=== PATIENT | male | born 1975 | race Two or more races ===

== ENCOUNTER 2020-01-17 03:01 | Inpatient (IN) | payer MEDICAID ==
[2020-01-17] VITALS (20 sets, daily range): BP systolic 93–132; BP diastolic 65–88
[~2020-01-17] VITALS: Ht 162.6 cm; Wt 45.4 kg
--- NOTE | 2020-01-17 03:09 | NUR ---
ED Nurse Note: pt BIBA from home c/o SOB x 2 hours. pt has a h/o DM, accucheck was 363. pt appears to be emaciated but in good hygiene, AO x 4. states he feels like he cannot breathe, O2 sat 99% on room air. pt denies any pain at this time. EMS report that pt self administered insulin at home RE EXAMINER. no other complaints at this time. skin is clean dry and intact. tachycardia and tachypnea noted upon exam
--- NOTE | 2020-01-17 03:12 | Emergency Room Report ---
History of Present Illness General Chief Complaint: Dyspnea/Respdistress Source: Patient, EMS Present Illness HPI This a 44-year-old male with a history of insulin-dependent diabetes. He presents with chief complaint of shortness of breath. Onset for last few hours. He is a he has been feeling weak and tired. Blood sugar was very high at home so he took insulin. Now sugar is in the 300s. Patient complaining of shortness of breath. Worse with exertion. Better with rest. No fever chills but no nausea vomiting or diarrhea. No cough or congestion. No fever. Similar symptoms 4 months ago when he was admitted to [facility]. Allergies: Coded Allergies: No Known Allergies (Unverified , 01/17/20) COVID-19 Screening Contact w/high risk pt: No Recent Travel to affected area: No Experienced COVID-19 symptoms?: No Patient History Past Medical History: see triage record, old chart reviewed, DM Past Surgical History: none Pertinent Family History: none Social History: Denies: smoking Immunizations: other Reviewed Nursing Documentation: PMH: Agreed; PSxH: Agreed Nursing Documentation-PMH Past Medical History: No History, Except For Hx Diabetes: Yes Review of Systems Eye: Denies: eye pain, blurred vision ENT: Denies: ear pain, nose congestion, throat swelling Respiratory: Reports: shortness of breath; Denies: cough Cardiovascular: Denies: chest pain, palpitations Gastrointestinal: Denies: abdominal pain, diarrhea, nausea, vomiting Musculoskeletal: Denies: back pain, joint pain Skin: Denies: rash Neurological: Denies: headache, numbness Endocrine: Denies: increased thirst, increased urine Hematologic/Lymphatic: Denies: easy bruising All Other Systems: negative except mentioned in HPI Physical Exam Vital Signs Date Time Temp Pulse Resp B/P (MAP) Pulse Ox O2 Delivery O2 Flow Rate FiO2 01/17/20 03:03 98.1 140 22 144/99 (114) 100 Room Air Vitals with tachycardia Sp02 EP Interpretation: reviewed, normal General Appearance: alert, moderate distress, cachetic Head: normocephalic, atraumatic Eyes: bilateral eye PERRL, bilateral eye EOMI ENT: hearing grossly normal, normal pharynx Neck: full range of motion, supple, no meningismus Respiratory: chest non-tender, lungs clear, normal breath sounds, other - Patient is tachypneic with [place] respiration Cardiovascular #1: regular rate, rhythm, no murmur, tachycardia Gastrointestinal: normal bowel sounds, non tender, no mass, no organomegaly, no bruit, non-distended Musculoskeletal: back normal, normal range of motion, gait/station normal Psychiatric: mood/affect normal Procedures Critical Care Time Critical Care Time Critical care is mandated in this patient who presented with DKA. Patient require my urgent intervention to attenuate the risks of metabolic collapse which may lead to cardiovascular collapse and . Critical care time is 75 minutes excluding any reportable procedure. Critical care time included evaluation, multiple reevaluation, looking at old charts, interpreting laboratory and diagnostic data, discussing case with patient and family and consultants, and charting. Medical Decision Making Diagnostic Impression: Primary Impression: DKA, type 1 Qualified Codes: E10.10 - Type 1 diabetes mellitus with ketoacidosis without coma Additional Impressions: Leukocytosis Qualified Codes: D72.829 - Elevated white blood cell count, unspecified Hypokalemia ER Course This patient presents with severe DKA. He is also hypokalemic. Potassium replaced first before insulin. Patient doing much better after IV fluid. Heart rate drops from 140s down to the 110s. He does have a leukocytosis but I suspect this is from a stress response. No evidence of any infection. Will admit to the ICU on insulin drip. I discussed the case with Dr. Hein for admission. EKG Diagnostic Results Rate: tachycardiac Rhythm: NSR ST Segments: no acute changes Rhythm Strip Diag. Results EP Interpretation: yes Rate: 110 Rhythm: NSR, no PVC's, no ectopy Chest X-Ray Diagnostic Results Chest X-Ray Diagnostic Results : Chest X-Ray Ordered: Yes # of Views/Limited/Complete: 1 View Indication: Shortness of Breath EP Interpretation: Yes Interpretation: no consolidation, no effusion, no pneumothorax, no acute cardiopulmonary disease Impression: No acute disease Electronically Signed by: Shorty García MD Last Vital Signs Date Time Temp Pulse Resp B/P (MAP) Pulse Ox O2 Delivery O2 Flow Rate FiO2 01/17/20 03:03 98.1 140 22 144/99 (114) 100 Room Air Status: improved Disposition: ADMITTED INPATIENT Condition: Critical Shorty García MD January 17, 2020 03:11
[2020-01-17 03:31] LABS: HEMATOCRIT 44.3 % (42.0-52.0); HEMOGLOBIN 15.9 G/DL (14.2-18.0); MEAN CORPUSCULAR VOLUME 93 FL (80-99); PLATELET COUNT 210 K/UL (150-450); RED BLOOD COUNT 4.78 M/UL (4.70-6.10); RED CELL DISTRIBUTION WIDTH 13.1 % (11.6-14.8)
[2020-01-17 03:34] LABS: WHITE BLOOD COUNT 26.9 K/UL (4.8-10.8)
[2020-01-17 03:41] LABS: APPEARANCE,URINE CLEAR; BILIRUBIN, URINE NEGATIVE (NEGATIVE); COLOR,URINE PALE YELLOW; GLUCOSE, URINE (UA) 4+ (NEGATIVE); KETONES,URINE 4+ (NEGATIVE); LEUKOCYTE ESTERASE ,URINE NEGATIVE (NEGATIVE); NITRITE,URINE NEGATIVE (NEGATIVE); PH,URINE 6 (4.5-8.0); PROTEIN,URINE 2+ (NEGATIVE); UROBILINOGEN,URINE NORMAL MG/DL (0.0-1.0)
[2020-01-17 03:51] LABS: ALANINE AMINOTRANSFERASE 23 U/L (12-78); ALBUMIN 3.3 G/DL (3.4-5.0); ALBUMIN/GLOBULIN RATIO 0.8 (1.0-2.7); ALKALINE PHOSPHATASE 208 U/L (46-116); ANION GAP 32 mmol/L (5-15); ASPARTATE AMINO TRANSFERASE 13 U/L (15-37); BILIRUBIN,TOTAL 0.7 MG/DL (0.2-1.0); BLOOD UREA NITROGEN 15 mg/dL (7-18); CALCIUM 8.7 MG/DL (8.5-10.1); CHLORIDE 104 MMOL/L (98-107); CREATININE 1.1 MG/DL (0.55-1.30); SODIUM 141 MMOL/L (136-145)
[2020-01-17 03:53] LABS: CARBON DIOXIDE 5 MMOL/L (21-32)
[2020-01-17] MEDS ORDERED: Insulin Reg 100 units Premix 100 ML IV STA (04:12)
--- NOTE | 2020-01-17 04:30 | NUR ---
ED Nurse Note: Informed to follow insulin drip protocol per ERMD. Not neccessary to give IVP insulin bolus per ERMD Raquel and will contine to follow protocol.
--- NOTE | 2020-01-17 04:30 | NUR ---
ED Nurse Note: Pt is laying in bed with safety measures in place. Accu check done and BS is 375. Insulin drip initiated at this time per protocol at 6 units/hr. Will continue to monitor.
[2020-01-17] MEDS: 1/2NS w/KCl 20mEq 1000ml 1,000 ML IV SCH ×2 (04:42→10:55)
--- NOTE | 2020-01-17 05:00 | NUR ---
ED Nurse Note: Pt is resting in bed. NAD. Pt given water and tolerated well, ok'd by ERMD. Pt is breathing at 15 respirations/min and oxygen saturation is 100%, but appears to still be using accessory muscles to breathe. See vitals as charted.
--- NOTE | 2020-01-17 05:30 | NUR ---
ED Nurse Note: Pt accu check shows blood sugar of 313. ERMD aware.
--- NOTE | 2020-01-17 05:45 | NUR ---
ED Nurse Note: Titrated insulin drip down to 5 unit/hr per ERMD verbal order at this time. Will continue to monitor pt.
--- NOTE | 2020-01-17 06:00 | NUR ---
ED Nurse Note: Pt states he does not consistently take home medications, no meds to be reported at this time. Pt also has swelling to the L side of his face that was there prior to arriving in the ED. Pt states swelling is from either a fall or infection, but is a poor historian.
--- NOTE | 2020-01-17 06:05 | NUR ---
ED Nurse Note: Report given to JENNIFER Guzman.
--- NOTE | 2020-01-17 06:15 | NUR ---
ED Nurse Note: MRSA, CRE/VRE swabs collected and sent to lab.
--- NOTE | 2020-01-17 06:25 | NUR ---
TRANSFER TO FLOOR: Patient transferred to ICU unit as ordered by KEISHA at this time. Pt is aaox4, speaking in full sentences and no acute distress noted. Pt IVs are patent and intact with medications infusing as ordered. Endorsed most recent blood sugar of 276 taken prior to transfer to receiving RN. Pt remains on insulin drip at 5 units/hr, ERMD aware. Pt taken to the unit via gurney, connected to the threat monitoring analyst by maria elena and RN. Pt appears more calm and breathing is normal at this time. Pt belongings sent with pt to floor.
--- NOTE | 2020-01-17 06:25 | NUR ---
ED Nurse Note: Pt vital signs are stable for transfer to unit.
[2020-01-17] MEDS ORDERED: Acetaminophen 500mg (ES) tab ORAL PRN (07:30)
[2020-01-17] MEDS ORDERED: Insulin Rate Change 1 Each MISC PRN (07:30)
[2020-01-17] MEDS ORDERED: Insulin Human Regular 100units/ml 3ml IV PRN (07:30)
[2020-01-17] MEDS ORDERED: NS w/KCl 20mEq 1000ml 1,000 ML IV SCH (08:00)
[2020-01-17] MEDS: Insulin Reg 100 units Premix 100 ML IVPB SCH ×9 (08:50→19:48)
[2020-01-17] MEDS: Insulin Human Regular 100units/ml 3ml IV PRN ×7 (08:51→21:06)
[2020-01-17 10:11] LABS: ANION GAP 24 mmol/L (5-15); BLOOD UREA NITROGEN 12 mg/dL (7-18); CALCIUM 8.8 MG/DL (8.5-10.1); CHLORIDE 109 MMOL/L (98-107); CREATININE 0.8 MG/DL (0.55-1.30); SODIUM 141 MMOL/L (136-145)
[2020-01-17 10:20] LABS: CARBON DIOXIDE 8 MMOL/L (21-32)
--- NOTE | 2020-01-17 12:02 | Diagnostic Imaging Report ---
Indication: Shortness of breath Technique: One view of the chest Comparison: none Findings: Lungs and pleural spaces are clear. Heart size is normal. Impression: No acute process
[2020-01-17 13:17] LABS: ALANINE AMINOTRANSFERASE 22 U/L (12-78); ALBUMIN 2.7 G/DL (3.4-5.0); ALBUMIN/GLOBULIN RATIO 0.7 (1.0-2.7); ALKALINE PHOSPHATASE 142 U/L (46-116); ANION GAP 16 mmol/L (5-15); ASPARTATE AMINO TRANSFERASE 11 U/L (15-37); BILIRUBIN,TOTAL 0.5 MG/DL (0.2-1.0); BLOOD UREA NITROGEN 11 mg/dL (7-18); CALCIUM 8.1 MG/DL (8.5-10.1); CARBON DIOXIDE 14 MMOL/L (21-32); CHLORIDE 109 MMOL/L (98-107); CREATININE 0.7 MG/DL (0.55-1.30); PHOSPHORUS 1.4 MG/DL (2.5-4.9); POTASSIUM 2.3 MMOL/L (3.5-5.1); SODIUM 139 MMOL/L (136-145)
--- NOTE | 2020-01-17 13:23 | NUR ---
READING RECOVERY TEACHER NOTE PT has admitted to ICU on 01/17/2020. Pt presents as A&O4x. Pt resides w/ his family at [address], [place] [address]. Pt is single, never , unemployed and has no children. Pt denies tobacco/substance abuse. RUDS all negative. Pt also denies hx of mental illness. Pt reports he is independent w/ ADLs and ambulatory w/o DMEs. Pt reports he does not have PCP. GLORIA provided the community resource packet including the list of [facility] care centers. Emergency contact provided: Natali (mother) [phone] Addendum: 01/17/20 at 1421 by NOEL CASTRO SW received a home safety evaluation consult for assist obtaining insulin. GLORIA spoke w/ Ade from Admitting that pt will be assisted for signing up restricted [facility]. GLORIA provided the list of [facility] w/ pharmacy services. Pt verbalized understanding. Pt has a and two children living in [place]. Currently living w/ his mother. Addendum: 01/18/20 at 1647 by NOEL CASTRO GLORIA also provided additional information on insulin discount program: https://www.[employer]/ and https://www.[employer]/sign-up/swtghjox-xkbjwsj-mvql GLORIA encouraged pt to sign up for the programs. Per Ade, pt has restricted [employer]. SW does not have any knowledge in types of insulin that he will be prescribed. Thus, GLORIA is unable to determine whether restricted [employer] or discount programs will cover such product. GLORIA encouraged pt to contact them directly.
[2020-01-17 13:26] LABS: HEMATOCRIT 36.4 % (42.0-52.0); HEMOGLOBIN 13.6 G/DL (14.2-18.0); MEAN CORPUSCULAR VOLUME 90 FL (80-99); PLATELET COUNT 158 K/UL (150-450); RED BLOOD COUNT 4.06 M/UL (4.70-6.10); RED CELL DISTRIBUTION WIDTH 12.9 % (11.6-14.8); WHITE BLOOD COUNT 13.7 K/UL (4.8-10.8)
[2020-01-17] MEDS ORDERED: Levemir Flexpen SUBQ SCH (14:00)
--- NOTE | 2020-01-17 15:09 | NUR ---
CASE MANAGEMENT: REVIEW 01/17/2020 44 YO M SUSAN FROM HOME CC: SOB PMHx: DM SI:DKA T 98.1 HR 140 RR 22 B/P 144/99 SATS 100% ON RA LABS: WBC 26.9 K 3 CO2 5 GLU 445 MG 2.5 AST 13 ALP 208 UTOX (+POSITIVE-SMALL) ABGs PH 7.338 PCO2 23.7 PO2 100.8 HCO3 12.4 BE -11.5 IS:NS BOLUS X2 KCL IV X1 1/2NS W/ KCL IV X1 REGULAR INSULIN DRIP CXR Impression: No acute process PATIENT ADMITTED TO ICU 01/17/2020 @ 0426 DCP: TBD
[2020-01-17] MEDS: Potassium Phosphate 20 MEQ in 1/2 NS 1000ml 1,000 ML IV SCH ×3 (16:46→23:30)
[2020-01-17] MEDS ORDERED: NovoLOG Insulin Flexpen SUBQ SCH (18:00)
--- NOTE | 2020-01-17 19:34 | NUR ---
NURSE NOTES: Received patient from JENNIFER Marr. Will continue plan of care.
--- NOTE | 2020-01-17 20:00 | NUR ---
NURSE NOTES: Patient is awake, alert and oriented x3, Ugandan speaking and understands a bit of Congolese. Accucheck hourly. Insulin drip running per protocol via left forearm 20g IV, right forearm running kphos 20meq in 1/2 NS @150ml/hr. All needs are met at this time, will continue to monitor.
--- NOTE | 2020-01-17 22:00 | NUR ---
NURSE NOTES: Accucheck resulted in 160, titrated insulin drip to 2.5units. BP: 106/65, HR:92, O2 saturation:100% on room air. No signs of pain or distress. Bed low locked and alarm is on. Will continue to monitor.
[2020-01-17] MEDS: Levemir Flexpen SUBQ SCH (22:11)
[2020-01-17] MEDS ORDERED: Zolpidem 5mg tab ORAL PRN (22:30)
--- NOTE | 2020-01-17 23:30 | History and Physical Report ---
DATE OF ADMISSION: 01/17/2020 REASON FOR ADMISSION: Acidosis. HISTORY OF PRESENT ILLNESS: This is a 44-year-old male has a known history of insulin-dependent diabetes mellitus. He was hospitalized at [facility] in the last couple of months with DKA. He went home on insulin and ran out about a month ago. The patient has been increasingly weak and short of breath for the past few days and came to the emergency room where he was noted to have severe acidosis with arterial blood gas revealing a pH of 6.9. He was ketone positive with a blood glucose over 300 and admitted to the intensive care unit. PAST MEDICAL HISTORY: As above. ALLERGIES: None known. MEDICATIONS: Prior to admission, long-acting insulin 14 units a day, short-acting insulin 4 units before meals. FAMILY HISTORY: Notable for diabetes. SOCIAL HISTORY: Negative for smoking, alcohol, or substance abuse. REVIEW OF SYSTEMS: Otherwise unremarkable. PHYSICAL EXAMINATION: GENERAL: Thin, frail but alert. VITAL SIGNS: Blood pressure 140/99, pulse 140, respiratory rate 22, afebrile, room air oxygen saturation 100%. HEENT: Conjunctivae pink. Oropharynx clear. NECK: Supple. LUNGS: Clear. CARDIAC: Regular. Normal S1, S2. No murmur. ABDOMEN: Soft. EXTREMITIES: No edema. NEUROLOGIC: No focality. LABORATORY AND DIAGNOSTIC DATA: EKG with sinus tachycardia and nonspecific ST changes. Chest x-ray, no acute process. [place] [address], hemoglobin 15. Sodium 141, potassium 3, bicarb 5, chloride 104, BUN 15, creatinine 1.1, glucose 445. Troponin negative. Urinalysis with no active sediment. IMPRESSION: 1. Diabetic ketoacidosis. 2. Noncompliance with insulin regimen. 3. Hypovolemia. 4. Dehydration. 5. Hypokalemia. 6. Leukocytosis with no obvious source of infection. PLAN: 1. ICU care monitoring. 2. Insulin drip. 3. Hydration. 4. Potassium replacement. 5. Check phosphorus and replace accordingly. 6. DVT prophylaxis. 7. web services professional assistance for discharge planning and ability to obtain medications. 8. Adjust IV fluids based on clinical parameters. Jackson Hein M.D. DR: Kennedi JOB#: [id number] CC:
[2020-01-18] VITALS (25 sets, daily range): BP systolic 83–106; BP diastolic 57–81
--- NOTE | 2020-01-18 | NUR ---
NURSE NOTES: Patient is comfortable. Vital signs stable. BS:150, continues insulin drip @ 2units/hr.
[2020-01-18] MEDS ORDERED: Insulin Reg 100 units Premix 100 ML IVPB SCH (01:45)
--- NOTE | 2020-01-18 02:00 | NUR ---
NURSE NOTES: BS: 69 @ 0100; 1/2 cup OJ given. Rechecked @ 0130 BS:148. Moved from Algorithm 2 to Algorithm 1, input new orders and obtained new label from [facility]. BS:140 @ 0200, restarted insulin drip w/ Algorithm 1: drip rate of 1unit/hr. All interventions per protocol. Will keep monitoring.
[2020-01-18] MEDS: Insulin Reg 100 units Premix 100 ML IVPB SCH ×3 (02:15→11:00)
--- NOTE | 2020-01-18 04:00 | NUR ---
NURSE NOTES: BS: 99 at target range. Insulin drip rate decreased to 0.2units/hr.
[2020-01-18 05:36] LABS: BASOPHILS % (AUTO) 0.6 % (0.0-2.0); EOSINOPHILS % (AUTO) 0.4 % (0.0-3.0); HEMATOCRIT 30.3 % (42.0-52.0); HEMOGLOBIN 11.8 G/DL (14.2-18.0); LYMPHOCYTES % (AUTO) 10.9 % (20.0-45.0); MEAN CORPUSCULAR VOLUME 89 FL (80-99); MONOCYTES % (AUTO) 7.5 % (1.0-10.0); NEUTROPHILS % (AUTO) 80.6 % (45.0-75.0); PLATELET COUNT 107 K/UL (150-450); RED BLOOD COUNT 3.43 M/UL (4.70-6.10); RED CELL DISTRIBUTION WIDTH 12.3 % (11.6-14.8); WHITE BLOOD COUNT 9.3 K/UL (4.8-10.8)
[2020-01-18 06:28] LABS: ALANINE AMINOTRANSFERASE 18 U/L (12-78); ALBUMIN 2.3 G/DL (3.4-5.0); ALBUMIN/GLOBULIN RATIO 0.7 (1.0-2.7); ALKALINE PHOSPHATASE 123 U/L (46-116); ANION GAP 12 mmol/L (5-15); ASPARTATE AMINO TRANSFERASE 22 U/L (15-37); BILIRUBIN,TOTAL 0.5 MG/DL (0.2-1.0); BLOOD UREA NITROGEN 7 mg/dL (7-18); CALCIUM 8.2 MG/DL (8.5-10.1); CARBON DIOXIDE 19 MMOL/L (21-32); CHLORIDE 109 MMOL/L (98-107); CREATININE 0.3 MG/DL (0.55-1.30); SODIUM 140 MMOL/L (136-145)
[2020-01-18 06:31] LABS: POTASSIUM 2.5 MMOL/L (3.5-5.1)
--- NOTE | 2020-01-18 07:21 | NUR ---
HAND-OFF: Report given to JENNIFER Marr.
--- NOTE | 2020-01-18 07:50 | NUR ---
NURSE NOTES: received report. pt in bed. a febrile. vss.insulin off. pt bg 70. d5ns running 125ml/hr. abdomen soft, flat. hypoactive bowel sounds. no bm at this time. urinal at bedside. continent. lt and rt fa 20g. skin intact. bed alarm on. will continue to monitor pt.
[2020-01-18 09:22] LABS: BASOPHILS % (AUTO) 0.5 % (0.0-2.0); EOSINOPHILS % (AUTO) 0.3 % (0.0-3.0); HEMATOCRIT 33.7 % (42.0-52.0); HEMOGLOBIN 12.8 G/DL (14.2-18.0); LYMPHOCYTES % (AUTO) 12.6 % (20.0-45.0); MEAN CORPUSCULAR VOLUME 88 FL (80-99); MONOCYTES % (AUTO) 7.5 % (1.0-10.0); NEUTROPHILS % (AUTO) 79.1 % (45.0-75.0); PLATELET COUNT 114 K/UL (150-450); RED BLOOD COUNT 3.81 M/UL (4.70-6.10); RED CELL DISTRIBUTION WIDTH 12.5 % (11.6-14.8)
--- NOTE | 2020-01-18 09:25 | NUR ---
CASE MANAGEMENT: REVIEW 01/18/2020 SI:DKA T 99.1 HR 82 RR 12 B/P 101/74 SATS 100% ON RA LABS: K 2.5 CL 109 CO2 19 CR 0.3 CA 8.2 PHOS 2.3 ALP 123 IS:KCL IV @ 125 ML/HR LEVEMIR SUBQ QHS INSULIN HUMAN IV PER PARAMETERS ICU DCP: TBD
[2020-01-18 10:03] LABS: ALANINE AMINOTRANSFERASE 20 U/L (12-78); ALBUMIN 2.4 G/DL (3.4-5.0); ALBUMIN/GLOBULIN RATIO 0.7 (1.0-2.7); ALKALINE PHOSPHATASE 119 U/L (46-116); ANION GAP 9 mmol/L (5-15); ASPARTATE AMINO TRANSFERASE 22 U/L (15-37); BILIRUBIN,TOTAL 0.6 MG/DL (0.2-1.0); BLOOD UREA NITROGEN 7 mg/dL (7-18); CALCIUM 8.3 MG/DL (8.5-10.1); CARBON DIOXIDE 22 MMOL/L (21-32); CHLORIDE 107 MMOL/L (98-107); CREATININE 0.3 MG/DL (0.55-1.30); SODIUM 138 MMOL/L (136-145)
[2020-01-18 10:21] LABS: POTASSIUM 2.4 MMOL/L (3.5-5.1)
--- NOTE | 2020-01-18 10:29 | NUR ---
NURSE NOTES: called MD Mcarthur regarding k 2.4, pt received 60k-dur, now on insulin drip at 1.5unis/kg/hr. spoke with Cecilia from call center. awaiting call back
[2020-01-18] MEDS: D5NS IV SCH ×4 (10:54→15:08)
[2020-01-18] MEDS: KCL IV SCH ×4 (10:54→15:08)
[2020-01-18] MEDS: Insulin Human Regular 100units/ml 3ml IV PRN (11:01)
[2020-01-18] MEDS ORDERED: Insulin Reg 100 units Premix 100 ML IV SCH (12:45)
--- NOTE | 2020-01-18 13:00 | NUR ---
NURSE NOTES: insulin drip off. pt eating 100% meals, drinking 500ml h20. no c/o pain. a febrile. will continue to
--- NOTE | 2020-01-18 13:16 | NUR ---
DISCHARGE PLANNING: NOTE ORDER RECEIVED >> PT NEEDS ASST IN OBTAINING INSULIN PT IS MEDICAL PRESUMPTIVE. [facility] HAS BEEN APPLIED FOR BY [employer] SSW TO PROVIDE PT WITH RESOURCES TO [facility] WHERE PT CAN OBTAIN DISCOUNTED MEDICATIONS THROUGH A PROGRAM (SEE SSW NOTE) ONCE PT IS READY FOR DC RX TO BE WRITTEN, RX TO BE FILLED BY NURSING AND PROVIDED TO PATIENT ALONG WITH TEACHING AND EDUCATION
--- NOTE | 2020-01-18 16:30 | NUR ---
NURSE NOTES: bg 293, 6 units subcut.
[2020-01-18] MEDS ORDERED: NovoLOG Insulin Flexpen SUBQ SCH (16:50)
[2020-01-18] MEDS: NovoLOG Insulin Flexpen SUBQ SCH ×2 (18:16→20:38)
[2020-01-18] MEDS: POTASSIUM PHOSPHATE IV SCH (18:17)
[2020-01-18] MEDS: SODIUM CHLORIDE IV SCH (18:17)
--- NOTE | 2020-01-18 19:50 | NUR ---
NURSE NOTES: LE: PATIENT ALERT ORIENTED, DENIED PAIN OR SOB, RESPIRATION REGULAR, O2 SATURATION OVER 98% NOTED, HR 80'S/MIN SR, ABDOMEN SOFT, PPL TO BOTH FA, INTACT AND PATENT, ONGOING K PHOS 20MEQ AT 100ML/HR VIA LEFT SIDE PPL, MADE LOWER BED POSITION, ON BED ALARM AND LOCKED, CALL LIGHT WITHIN REACH, WILL CONTINUE TO MONITOR.
--- NOTE | 2020-01-18 20:21 | NUR ---
HAND-OFF: Report given to thom royal
[2020-01-18] MEDS: Levemir Flexpen SUBQ SCH (20:39)
--- NOTE | 2020-01-18 21:50 | NUR ---
NURSE NOTES: le; NO PAIN OR SOB NOTED, WILL CONTINUE TO MONITOR.
[2020-01-19] VITALS (12 sets, daily range): BP systolic 78–114; BP diastolic 48–78
--- NOTE | 2020-01-19 00:15 | Progress Note ---
DATE: 01/18/2020 CARDIOLOGY PROGRESS NOTE SUBJECTIVE: Patient's condition has improved. Glucose parameters are stabilizing. He is no longer acidotic or ketotic. PHYSICAL EXAMINATION: Vitals are stable. Exam is unchanged. Patient is being taken off insulin drip and transitioned to long-acting insulin plus sliding scale coverage. LABORATORY DATA: Notable for potassium of 2.4. Phosphorus is 2.3. His magnesium was 2.0 yesterday. IMPRESSION: 1. DKA. 2. Hypokalemia. 3. Hypophosphatemia. 4. Noncompliance. PLAN: 1. Transition from insulin drip to long-acting insulin and sliding scale coverage. 2. Replace phosphorus and potassium. 3. Recheck magnesium levels. 4. Discharge planning. Jackson Hein M.D. DR: PAULIE JOB#: [id number] CC:
--- NOTE | 2020-01-19 00:30 | NUR ---
NURSE NOTES: NO DISTRESS NOTED AT THIS TIME.
--- NOTE | 2020-01-19 02:12 | NUR ---
NURSE NOTES: PATIENT ASLEEP STATUS, NO ACUTE DISTRESS NOTED, WILL CONTINUE PLAN OF CARE.
--- NOTE | 2020-01-19 04:10 | NUR ---
NURSE NOTES: NO PAIN OR DISTRESS NOTED AT THIS TIME.
[2020-01-19 04:40] LABS: HEMATOCRIT 30.4 % (42.0-52.0); HEMOGLOBIN 11.5 G/DL (14.2-18.0); MEAN CORPUSCULAR VOLUME 88 FL (80-99); PLATELET COUNT 95 K/UL (150-450); RED BLOOD COUNT 3.45 M/UL (4.70-6.10); RED CELL DISTRIBUTION WIDTH 12.2 % (11.6-14.8); WHITE BLOOD COUNT 6.6 K/UL (4.8-10.8)
[2020-01-19] MEDS: POTASSIUM PHOSPHATE IV SCH ×3 (04:42→17:30)
[2020-01-19] MEDS: SODIUM CHLORIDE IV SCH ×3 (04:42→17:30)
[2020-01-19 05:17] LABS: ALANINE AMINOTRANSFERASE 22 U/L (12-78); ALBUMIN 2.2 G/DL (3.4-5.0); ALBUMIN/GLOBULIN RATIO 0.8 (1.0-2.7); ALKALINE PHOSPHATASE 130 U/L (46-116); ANION GAP 8 mmol/L (5-15); ASPARTATE AMINO TRANSFERASE 33 U/L (15-37); BILIRUBIN,TOTAL 0.5 MG/DL (0.2-1.0); BLOOD UREA NITROGEN 8 mg/dL (7-18); CALCIUM 7.9 MG/DL (8.5-10.1); CARBON DIOXIDE 27 MMOL/L (21-32); CHLORIDE 104 MMOL/L (98-107); CREATININE 0.4 MG/DL (0.55-1.30); PHOSPHORUS 3.4 MG/DL (2.5-4.9); SODIUM 139 MMOL/L (136-145)
[2020-01-19 05:19] LABS: POTASSIUM 2.7 MMOL/L (3.5-5.1)
--- NOTE | 2020-01-19 05:30 | NUR ---
NURSE NOTES: MORNING CARE WAS DONE.
[2020-01-19] MEDS: NovoLOG Insulin Flexpen SUBQ SCH ×4 (06:30→20:48)
--- NOTE | 2020-01-19 07:00 | NUR ---
TRANSFER TO FLOOR: Patient transferred to SDU room 235-2 via hoswpital bed. Report given to JENNIFER HERNANDEZ. Belongings and medications given to [id number] nurse. Family and or S/O informed of transfer.
--- NOTE | 2020-01-19 07:00 | NUR ---
NURSE NOTES: Received report from Harinder RODRIGUEZ.
[2020-01-19] MEDS ORDERED: Acetaminophen 500mg (ES) tab ORAL PRN (07:30)
--- NOTE | 2020-01-19 08:50 | NUR ---
NURSE NOTES: Pt. in bed, a/o x 4. No sign of distress. On R.A. Denies pain at present. IV at right and left FA #20g. in placed running K phos. with 20kcl. at 100cc/hr. Bed in low position, locked. Call light within reach. Will cont. to monitor.
[2020-01-19] MEDS ORDERED: Pantoprazole Inj IVP SCH (09:00)
--- NOTE | 2020-01-19 11:27 | NUR ---
NURSE NOTES: Patient transferred from [facility], and received report from Arlene/RN, Patient is awake and alert, on room air no sign of distress/SOB noted. Able to make needs known, Denies pain at this time. Belonging check done with transferring nurse, Skin intact. IV on right and left AC, patent. Bed in low position and locked, Call light within reach. Will continue plan of care.
--- NOTE | 2020-01-19 19:34 | NUR ---
HAND-OFF: Report given to Rina/RN. Patient is in stable condition. Endorsed plan of care.
--- NOTE | 2020-01-19 20:12 | NUR ---
NURSE NOTES: Received patient report from JENNIFER Rogers. Patient shows no signs of distress or pain at the time. Patient is AO x 4. Shows no signs of respiratory distress on room air. IV patent and flushed. There are no signs of erythema, infiltration, or bleeding at the time. Bed in the lowest position, chin light within reach, and side rails up x 3. Will continue plan of care.
[2020-01-19] MEDS: Heparin 5000 units/ml inj SUBQ SCH (20:48)
[2020-01-19] MEDS ORDERED: Levemir Flexpen SUBQ SCH ×2 (21:00)
[2020-01-19] MEDS ORDERED: Heparin 5000 units/ml inj SUBQ SCH ×2 (21:00)
[2020-01-20] VITALS: BP 120/86
--- NOTE | 2020-01-20 01:44 | Progress Note ---
DATE: 01/19/2020 INTERNAL MEDICINE PROGRESS NOTE SUBJECTIVE: The patient without complaints. He is now acetone negative. Glucose parameters slightly elevated. Labs reviewed notable for potassium 2.7. Magnesium 2.1. Phosphorus is 3.4. OBJECTIVE: Exam without change. IMPRESSION: 1. DKA, recovering. 2. Hypokalemia, persisting. 3. Hypophosphatemia, corrected. 4. Severe protein-calorie malnutrition. 5. History of insulin noncompliance in the setting of insulin-requiring diabetes mellitus. PLAN: 1. Advance long-acting insulin. 2. Continue hydration and potassium replacement. 3. Diabetes education. Jackson Hein M.D. DR: ALICIA JOB#: [id number] CC:
[2020-01-20] MEDS: POTASSIUM PHOSPHATE IV SCH ×3 (03:43→22:33)
[2020-01-20] MEDS: SODIUM CHLORIDE IV SCH ×3 (03:43→22:33)
[2020-01-20 04:00] VITALS: BP 116/81
[2020-01-20 04:45] LABS: ANION GAP 3 mmol/L (5-15); BLOOD UREA NITROGEN 10 mg/dL (7-18); CALCIUM 8.3 MG/DL (8.5-10.1); CARBON DIOXIDE 29 MMOL/L (21-32); CHLORIDE 104 MMOL/L (98-107); CREATININE 0.3 MG/DL (0.55-1.30); PHOSPHORUS 4.8 MG/DL (2.5-4.9); POTASSIUM 3.7 MMOL/L (3.5-5.1); SODIUM 136 MMOL/L (136-145)
[2020-01-20] MEDS: NovoLOG Insulin Flexpen SUBQ SCH ×4 (06:30→20:51)
--- NOTE | 2020-01-20 07:22 | NUR ---
NURSE NOTES: Received report from Rina/RN, patient is awake and alert, sitting on bed, eating breakfast, On room air, no acute distress/SOB noted. Able to make needs known, denies pain at this time, IV on Right and Left FA, patent, no bleeding or infiltration noted. Bed in lowest position and locked, Call light within reach, Encouraged to use call light when needed. Will continue plan of care.
--- NOTE | 2020-01-20 07:45 | NUR ---
HAND-OFF: Report given to JENNIFER Rogers. Patient shows no signs of distress or pain at the time. Endorsed plan of care
[2020-01-20 08:00] VITALS: BP 96/73
[2020-01-20] MEDS: Heparin 5000 units/ml inj SUBQ SCH ×2 (08:25→20:50)
[2020-01-20 12:00] VITALS: BP 107/74
--- NOTE | 2020-01-20 12:21 | NUR ---
RD ASSESSMENT & RECOMMENDATIONS SEE CARE ACTIVITY FOR COMPLETE ASSESSMENT DAILY ESTIMATED NEEDS: Needs based on DM 53.6kg 27-32 kcals/kg 9183-5108 total kcals 1-1.5 g protein/kg 54-80 g total protein 25-30 mL/kg 4497-2678 total fluid mLs NUTRITION DIAGNOSIS: Altered nutrition related lab values r/t DKA as evidenced by A1C 11.6, Uglu 4+ on adm, acetone +. CURRENT DIET: CCHO MED PO DIET RECOMMENDATIONS: CCHO LOW (3 carbs per meal) + 2X PRO PORTIONS + 1carb snack in b/w meals ADDITIONAL RECOMMENDATIONS: 1) Obtain a daily standing weight 2) Add B-complex daily 3) Encourage snacks in b/w meals to prevent hypoglycemia
[2020-01-20] MEDS: Levemir Flexpen SUBQ SCH (14:49)
[2020-01-20 16:00] VITALS: BP 131/70
--- NOTE | 2020-01-20 19:20 | NUR ---
HAND-OFF: Report given to Kirsten/JENNIFER. Patient is in stable condition. Endorsed plan of care.
--- NOTE | 2020-01-20 19:30 | NUR ---
NURSE NOTES: Received report from JENNIFER Rogers. Patient is awake, lying in semi keith's; resting comfortably. A/Ox4, Denies pain at this time. No signs of acute distress noted. Checked IV site and flushed with ongoing IV fluid as prescribed. No erythema, bleeding or infiltration noted. Bed at lowest position, brakes on, siderails x3. Call light within reach. Will continue to monitor.
[2020-01-20 20:00] VITALS: BP 122/75
[2020-01-20] MEDS ORDERED: Levemir Flexpen SUBQ SCH (21:00)
--- NOTE | 2020-01-20 23:00 | Progress Note ---
DATE: 01/20/2020 SUBJECTIVE: Glucose levels remained elevated during the day. The patient has no new complaints. no cough, SOB, or CP. OBJECTIVE: His COVID19 swab is positive. VITAL SIGNS: Stable. No fevers LABORATORY DATA: Labs are reviewed. Potassium has been corrected. PLAN: We will adjust insulin doing to Levemir twice a day and continue sliding scale coverage before meals and anticipate discharge in the next 24 hours. The patient will need outpatient followup to optimize his diabetic therapy long-term. He does not require any therapy for COVI19 at present. He is now in isolation. Jackson Hein M.D. DR: Anna JOB#: [id number] CC: JEFFREY
[2020-01-21] VITALS: BP 118/80
--- NOTE | 2020-01-21 01:59 | NUR ---
NURSE NOTES: Resting throughout the night. No significant change of condition noted. Will continue to monitor.
[2020-01-21 04:00] VITALS: BP 105/89
[2020-01-21] MEDS: NovoLOG Insulin Flexpen SUBQ SCH ×2 (06:30→11:20)
--- NOTE | 2020-01-21 07:30 | NUR ---
HAND-OFF: Report given to JENNIFER Greenberg. Plan of care endorsed.
[2020-01-21 08:00] VITALS: BP 103/66
[2020-01-21] MEDS: Heparin 5000 units/ml inj SUBQ SCH (08:05)
[2020-01-21] MEDS: Levemir Flexpen SUBQ SCH (08:37)
[2020-01-21] MEDS: POTASSIUM PHOSPHATE IV SCH (09:30)
[2020-01-21] MEDS: SODIUM CHLORIDE IV SCH (09:30)
--- NOTE | 2020-01-21 11:53 | NUR ---
NURSE NOTES: pt transferred to 4e in stable condition w all belongings.
[2020-01-21 12:00] VITALS: BP 104/73
[2020-01-21] MEDS ORDERED: SODIUM CHLORIDE IV SCH ×2 (12:00→19:00)
[2020-01-21] MEDS ORDERED: POTASSIUM PHOSPHATE IV SCH ×2 (12:00→19:00)
--- NOTE | 2020-01-21 12:07 | NUR ---
NURSE NOTES: Patient transferred from [address] [place] [address], report received from JENNIFER Greenberg. Patient is AxOx4, not in distress, tolerating room air. PIV on right forearm and left wrist intact, right forearm infusing IVF as ordered. Patient is continent to bowel and bladder functions. Vitals stable prior to transport. Skin is intact. Oriented to room, bed low and locked, siderails up x2, isolation precautions maintained, alarms on zone 1. Will continue to monitor and implement plan of care.
[2020-01-21] MEDS ORDERED: Acetaminophen 500mg (ES) tab ORAL PRN (12:09)
[2020-01-21 13:08] LABS: ANION GAP 8 mmol/L (5-15); BLOOD UREA NITROGEN 8 mg/dL (7-18); CALCIUM 7.9 MG/DL (8.5-10.1); CARBON DIOXIDE 28 MMOL/L (21-32); CHLORIDE 101 MMOL/L (98-107); CREATININE 0.5 MG/DL (0.55-1.30); POTASSIUM 3.6 MMOL/L (3.5-5.1); SODIUM 137 MMOL/L (136-145)
[2020-01-21 13:13] LABS: ALANINE AMINOTRANSFERASE 20 U/L (12-78); ALBUMIN 2.2 G/DL (3.4-5.0); ALBUMIN/GLOBULIN RATIO 0.6 (1.0-2.7); ALKALINE PHOSPHATASE 129 U/L (46-116); ASPARTATE AMINO TRANSFERASE 26 U/L (15-37); BILIRUBIN,TOTAL 0.3 MG/DL (0.2-1.0); PHOSPHORUS 5.1 MG/DL (2.5-4.9)
--- NOTE | 2020-01-21 15:02 | NUR ---
CASE MANAGEMENT:REVIEW 01/21/20 SI: RECOVERING DKA HYPOKALEMIA. SEVERE MALNUTRITION 97.3 74 20 104/73 100% ON RA GLUCOSE+197 PHOS+5.1 IS: LEVEMIR SQ QD HEPARIN SQ Q12 LEVEMIR SQ QHS INSULIN AC+HS IVF+K-PHOS @ 100/HR : TELEMETRY STATUS DCP: FROM HOME PLAN: DOWNGRADE TO MED/SURG
--- NOTE | 2020-01-21 15:06 | NUR ---
DISCHARGE PLANNING ADMITTING IS STILL LOOKING INTO PATIENT'S INSURANCE PATIENT WILL NEED PRESCRIPTIONS UPON DISCHARGE AND CAN F/U AT THE [facility]
[2020-01-21 16:00] VITALS: BP 119/67
[2020-01-21] MEDS ORDERED: NovoLOG Insulin Flexpen SUBQ SCH (16:30)
[2020-01-21] MEDS ORDERED: LEVEMIR FL100 UNIT/1 SUBQ ×2 (17:53)
[2020-01-21] MEDS ORDERED: NOVOLOG100 UNITS1 SUBQ (17:54)
--- NOTE | 2020-01-21 18:51 | NUR ---
NURSE NOTES: Patient discharged home with instructions to self-isolate at home for 14 days and return to hospital if any recurrence of symptoms. Vitals stable prior to discharge, skin intact. PIV and ID band removed. All discharge instructions and medications/prescriptions given to patient. Educated on use of insulin pens, indications, side effects, how to administer. Return demonstration done, patient verbalized understanding. Patient able to ambulate, given surgical mask to put on face, accompanied to [facility]. Patient left at 1747 in private vehicle accompanied by family member. Addendum: 01/21/20 at 1854 by Justa Reyna RN Correction, patient left at 1847H
[2020-01-21] MEDS ORDERED: Heparin 5000 units/ml inj SUBQ SCH (21:00)
[2020-01-21] MEDS ORDERED: Levemir Flexpen SUBQ SCH ×2 (21:00)
[2020-01-22] MEDS ORDERED: Levemir Flexpen SUBQ SCH ×2 (09:00)
--- NOTE | 2020-01-22 20:52 | Discharge Summary ---
Discharge Summary Discharge Summary _ DATE OF ADMISSION: 01/17/2020 DATE OF DISCHARGE: 01/21/2020 DISCHARGED BY: REASON FOR ADMISSION: 44 years old male with past medical history of insulin-dependent diabetes mellitus with recent hospitalization at [facility] with DKA, went home on insulin, but ran out of it about a month ago. Patient presented with shortness of breath and generalized weakness. Upon evaluation patient was severely acidotic with pH 6.9. CO2 9.1 on ABGs. WBC 26.9, stable hemoglobin and hematocrit. Glucose 445. Potassium 3.0. Anion gap 32. Troponin negative. EKG reveals sinus tachycardia. Urine positive for acetone. Urine toxicology screen was negative. Urinalysis revealed +2 protein, +4 glucose, +4 ketones. Chest x-ray revealed no acute cardiopulmonary pathology.. Potassium replaced before insulin. Patient started on IV fluids. Sinus tachycardia improved. Patient admitted to ICU on insulin drip. HOSPITAL COURSE: Patient admitted to ICU. Patient started on generous IV hydration and insulin drip. DVT prophylaxis provided. Insulin drip provided as per protocol until anion gap was closed. Electrolytes and renal parameters were closely monitored. Potassium was replaced along with phosphorus. Magnesium was stable. After anion gap closed insulin drip was discontinued. Patient started on long-acting insulin with sliding scale of insulin as needed. Diabetic teaching provided. SARS-CoV-2 by PCR was positive. Patient was on isolation. Chest x-ray revealed no evidence of acute cardiopulmonary pathology as mentioned above. Patient required no treatment for COVID 19, only supportive care. Leukocytosis resolved, no fevers. Patient clinically stabilized and was ready for discharge home with instruction to self isolate himself at home for 14 days . R return to hospital if condition worsened. Patient was stressed compliance with his insulin regimen. FINAL DIAGNOSES: Diabetes ketoacidosis Noncompliance with insulin regimen Confirmed COVID-19 infection Dehydration Hypokalemia Hypophosphatemia Leukocytosis -resolved DISCHARGE MEDICATIONS: See Medication Reconciliation list. DISCHARGE INSTRUCTIONS: Patient was discharged home. Patient to follow-up with the [facility]. I have been assigned to dictate discharge summary for this account. I was not involved in the patient's management. Jaclyn Maurer NP January 22, 2020 20:51
== END 2020-01-21 18:45 | disposition home or self-care (01) | DRG 420 ==
LOC: EDBD 03:01 → EMR 03:23 → ICU 04:26 → EDBEDREQ 05:10 → 2W 01-19 06:45 → 2E 01-19 12:14 → 4E 01-21 11:43
DX: E11.10 Type 2 diabetes mellitus with ketoacidosis without coma (principal); U07.1 COVID-19; Z79.4 Long term (current) use of insulin; E86.1 Hypovolemia; E86.0 Dehydration; E87.6 Hypokalemia; E83.39 Other disorders of phosphorus metabolism; E43 Unspecified severe protein-calorie malnutrition; Z91.14 Patient's other noncompliance with medication regimen
CPT/HCPCS: 36415; 36600; 71045; 80048; 80053; 80307; 81003; 82009; 82803; 82962; 83036; 83735; 84100; 84484; 85007; 85025; 87081; 87635; 93005; 96361; 96365; 96366; 99291; J1815; J7030; J8499; S5561

== ENCOUNTER 2020-08-04 17:35 | Inpatient (IN) | payer MEDICAID ==
[~2020-08-04] VITALS: Ht 157.5 cm; Wt 68.0 kg
[~2020-08-04 17:35] MED LIST: LEVEMIR FL100 UNIT/1 SUBQ; NOVOLOG100 UNITS1 SUBQ
[2020-08-04] MEDS ORDERED: Morphine Sulfate 4mg/ml Inj (IV USE ONLY) IVP ONE (17:45)
[2020-08-04] MEDS ORDERED: Insulin Human Regular 100units/ml 3ml IV ONE (17:45)
[2020-08-04] MEDS ORDERED: Insulin Reg 100 units Premix 100 ML IV SCH (17:45)
[2020-08-04 18:00] VITALS: BP 145/82
[2020-08-04 18:17] LABS: HEMATOCRIT 48.3 % (42.0-52.0); HEMOGLOBIN 16.5 G/DL (14.2-18.0); MEAN CORPUSCULAR VOLUME 101 FL (80-99); PLATELET COUNT 247 K/UL (150-450); RED BLOOD COUNT 4.79 M/UL (4.70-6.10); RED CELL DISTRIBUTION WIDTH 12.7 % (11.6-14.8)
[2020-08-04 18:19] LABS: APPEARANCE,URINE SLIGHTLY CLOUDY; BILIRUBIN, URINE NEGATIVE (NEGATIVE); COLOR,URINE PALE YELLOW; GLUCOSE, URINE (UA) 4+ (NEGATIVE); KETONES,URINE 4+ (NEGATIVE); LEUKOCYTE ESTERASE ,URINE NEGATIVE (NEGATIVE); NITRITE,URINE NEGATIVE (NEGATIVE); PH,URINE 5 (4.5-8.0); PROTEIN,URINE 3+ (NEGATIVE); UROBILINOGEN,URINE NORMAL MG/DL (0.0-1.0)
[2020-08-04 18:23] LABS: WHITE BLOOD COUNT 24.7 K/UL (4.8-10.8)
[2020-08-04 18:37] LABS: BLOOD UREA NITROGEN 15 mg/dL (7-18); CHLORIDE 97 MMOL/L (98-107); CREATININE 0.9 MG/DL (0.55-1.30); SODIUM 132 MMOL/L (136-145)
--- NOTE | 2020-08-04 18:43 | Emergency Room Report ---
History of Present Illness General Chief Complaint: Abnormal Labs Source: Patient, EMS Present Illness HPI Patient is a 45-year-old male for increased generalized weakness and elevated blood sugar. Patient reportedly had not taken his insulin and had been using crystal meth. Had been noted to have increased trouble with breathing. Denies any prior kidney issues. 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 Patient History Past Medical History: see triage record Reviewed Nursing Documentation: PMH: Agreed; PSxH: Agreed Nursing Documentation-PMH Hx Cardiac Problems: No Hx Diabetes: Yes - type 1 Hx Cancer: No Hx Neurological Problems: No Review of Systems All Other Systems: negative except mentioned in HPI Physical Exam Vital Signs Date Time Temp Pulse Resp B/P (MAP) Pulse Ox O2 Delivery O2 Flow Rate FiO2 08/04/20 17:28 98.1 126 26 145/82 (103) 98 Nasal Cannula 4.0 Sp02 EP Interpretation: reviewed, normal General Appearance: alert, GCS 15, Chronically Ill Head: atraumatic Eyes: bilateral eye other - Lid lag and decreased extraocular movements ENT: normal ENT inspection, hearing grossly normal, normal voice Neck: normal inspection, full range of motion, supple, no bony tend Respiratory: lungs clear, normal breath sounds, no respiratory distress, no retraction, no wheezing, other - Respirations Kussmaul Cardiovascular #1: regular rate, rhythm, no edema Gastrointestinal: normal inspection, normal bowel sounds, non tender, soft, no guarding, no hernia Genitourinary: no CVA tenderness Musculoskeletal: normal inspection, back normal, normal range of motion Neurologic: alert, motor strength/tone normal, golf 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 Total critical care time excluding procedures approximately 45 minutes. Medical Decision Making Diagnostic Impression: Primary Impression: Diabetic ketoacidosis ER Course Patient presented for increased generalized weakness as well as high blood sugar. Differential diagnosis include was not limited to diabetic ketoacidosis, hyperglycemia, anemia among others. Because of complexity of patient's case laboratory tests and imaging studies were ordered. Patient's initial blood sugar was noted to measure high. Initial venous blood gas showed pH less than 7. Patient started on IV fluids as well as insulin. Was noted to be somewhat hypokalemic compared with acidosis and so was not given IV bicarb. Patient was given IV potassium as well as oral potassium replacement. Was started on insulin drip. Repeat laboratory testing showed continued acidosis with some improvement in hyperkalemia and patient was subsequently started on insulin drip afterward. Dr. Eugenio Appiah was contacted for inpatient management. EKG Diagnostic Results Rate: tachycardiac Rhythm: NSR ST Segments: no acute changes Last Vital Signs Date Time Temp Pulse Resp B/P (MAP) Pulse Ox O2 Delivery O2 Flow Rate FiO2 08/04/20 18:00 98.1 26 145/82 98 Nasal Cannula 4.0 08/04/20 17:28 126 Status: improved Disposition: ADMITTED INPATIENT Condition: Critical Referrals: NOT CHOSEN DIONNE/,REFERRING (PCP) Lang Sumner MD Aug 04, 2020 18:43
[2020-08-04 18:47] LABS: ALANINE AMINOTRANSFERASE 8 U/L (12-78); ALBUMIN 3.6 G/DL (3.4-5.0); ALKALINE PHOSPHATASE 261 U/L (46-116); ASPARTATE AMINO TRANSFERASE 17 U/L (15-37)
[2020-08-04 19:00] LABS: CARBON DIOXIDE < 5 MMOL/L (21-32)
[2020-08-04] MEDS ORDERED: Potassium Chl 10mEq/100ml 110 ML IV ONE (19:15)
[2020-08-04] MEDS ORDERED: Insulin Reg 100 units Premix 100 ML IVPB SCH (22:00)
[2020-08-04 22:09] LABS: BLOOD UREA NITROGEN 15 mg/dL (7-18); CALCIUM 7.7 MG/DL (8.5-10.1); CHLORIDE 101 MMOL/L (98-107); CREATININE 0.7 MG/DL (0.55-1.30); POTASSIUM 4.3 MMOL/L (3.5-5.1); SODIUM 131 MMOL/L (136-145)
[2020-08-04 22:17] LABS: CARBON DIOXIDE < 5 MMOL/L (21-32)
[2020-08-04 22:19] LABS: ALANINE AMINOTRANSFERASE < 6 U/L (12-78); ALBUMIN 3.4 G/DL (3.4-5.0); ALBUMIN/GLOBULIN RATIO 0.9 (1.0-2.7); ALKALINE PHOSPHATASE 254 U/L (46-116); ASPARTATE AMINO TRANSFERASE 26 U/L (15-37); BILIRUBIN,TOTAL 0.6 MG/DL (0.2-1.0)
[2020-08-04] MEDS ORDERED: Sodium Bicarbonate 100 ML in D5W 1000ml 1,000 ML IV ONE (23:45)
[2020-08-05] VITALS (15 sets, daily range): BP systolic 97–129; BP diastolic 66–85
[2020-08-05 01:30] LABS: HEMATOCRIT 45.3 % (42.0-52.0); HEMOGLOBIN 15.7 G/DL (14.2-18.0); MEAN CORPUSCULAR VOLUME 101 FL (80-99); PLATELET COUNT 165 K/UL (150-450); RED BLOOD COUNT 4.48 M/UL (4.70-6.10); RED CELL DISTRIBUTION WIDTH 13.2 % (11.6-14.8)
[2020-08-05 01:44] LABS: ANION GAP 22 mmol/L (5-15); BLOOD UREA NITROGEN 11 mg/dL (7-18); CHLORIDE 104 MMOL/L (98-107); CREATININE 0.7 MG/DL (0.55-1.30); POTASSIUM 4.5 MMOL/L (3.5-5.1); SODIUM 132 MMOL/L (136-145)
[2020-08-05 01:46] LABS: CARBON DIOXIDE 7 MMOL/L (21-32)
[2020-08-05] MEDS ORDERED: Sodium Bicarbonate 50ml Carp IV ONE (02:00)
[2020-08-05 05:57] LABS: ANION GAP 22 mmol/L (5-15); BLOOD UREA NITROGEN 10 mg/dL (7-18); CALCIUM 8.1 MG/DL (8.5-10.1); CARBON DIOXIDE 10 MMOL/L (21-32); CHLORIDE 106 MMOL/L (98-107); CREATININE 0.6 MG/DL (0.55-1.30); POTASSIUM 3.2 MMOL/L (3.5-5.1); SODIUM 137 MMOL/L (136-145)
[2020-08-05] MEDS: Insulin Reg 100 units Premix 100 ML IV SCH ×2 (15:08→16:07)
--- NOTE | 2020-08-05 15:17 | Diagnostic Imaging Report ---
Indication: Shortness of breath Technique: One view of the chest Comparison: 01/17/2020 Findings: Lungs and pleural spaces are clear. Heart size is normal. Again demonstrated is gastric distention Impression: No acute process Gastric distention, also previously demonstrated
[2020-08-05] MEDS: cefTRIAXone 1 GM in NS 55 ML IVPB SCH (16:01)
[2020-08-05] MEDS: Insulin Rate Change 1 Each MISC PRN ×2 (16:03→20:56)
[2020-08-05 16:10] LABS: SODIUM 141 MMOL/L (136-145)
[2020-08-05 16:12] LABS: BLOOD UREA NITROGEN 11 mg/dL (7-18); CALCIUM 8.3 MG/DL (8.5-10.1); CARBON DIOXIDE 17 MMOL/L (21-32); CHLORIDE 110 MMOL/L (98-107); CREATININE 0.6 MG/DL (0.55-1.30); POTASSIUM 2.4 MMOL/L (3.5-5.1)
[2020-08-05] MEDS: Vancomycin 1 GM in NS 275 ML IVPB SCH (17:52)
[2020-08-05] MEDS ORDERED: Insulin Reg 100 units Premix 100 ML IV SCH ×2 (19:30→23:15)
[2020-08-05] MEDS: Heparin 5000 units/ml inj SUBQ SCH (20:04)
--- NOTE | 2020-08-05 20:29 | History and Physical Report ---
DATE OF ADMISSION: 08/04/2020 REASON FOR ADMISSION: Diabetic ketoacidosis. HISTORY OF PRESENT ILLNESS: The patient is a 45-year-old male who presented with generalized weakness, elevated blood sugar, noted to be in diabetic ketoacidosis. The patient is not taking his insulin. Has been using amphetamines. The patient is with tachypnea on arrival. The patient is started on IV hydration, IV insulin, and admitted to ICU. PAST MEDICAL HISTORY: Insulin-dependent diabetic. MEDICATIONS: Insulin. SOCIAL HISTORY: Significant drug use including amphetamines. PHYSICAL EXAMINATION: GENERAL: A well-developed male, otherwise stable. VITAL SIGNS: Reviewed, otherwise stable. LUNGS: Fairly clear and symmetric. CARDIAC: S1, S2. Currently regular rate. ABDOMEN: Soft, nontender. EXTREMITIES: No edema. LABORATORY DATA: Reviewed. White cell count 21, potassium 3.2, BUN and creatinine 10 and 0.6. Blood sugars are 270. Atrial blood gas is 6.8/. IMPRESSION: Diabetic ketoacidosis, profound acidemia, metabolic in nature, noncompliant, amphetamine user, leukocytosis of unclear etiology. RECOMMENDATIONS: Obtain blood cultures. Empiric antibiotics, insulin drip, IV hydration, DKA protocol. Resume home medications . Keep NPO for today. Viky hawkins and to assess for further optimization and discharge planning. Eugenio Appiah M.D. DR: ANDREINA JOB#: [id number] CC:
[2020-08-06] VITALS (24 sets, daily range): BP systolic 83–109; BP diastolic 52–81
[2020-08-06] MEDS: Insulin Human Regular 100units/ml 3ml IV PRN ×6 (00:21→22:18)
[2020-08-06] MEDS: Insulin Rate Change 1 Each MISC PRN ×7 (01:02→22:22)
[2020-08-06] MEDS ORDERED: Insulin Reg 100 units Premix 100 ML IV SCH ×5 (02:30→15:15)
[2020-08-06 04:51] LABS: HEMATOCRIT 34.1 % (42.0-52.0); HEMOGLOBIN 12.2 G/DL (14.2-18.0); MEAN CORPUSCULAR VOLUME 94 FL (80-99); PLATELET COUNT 140 K/UL (150-450); RED BLOOD COUNT 3.61 M/UL (4.70-6.10); RED CELL DISTRIBUTION WIDTH 12.7 % (11.6-14.8); WHITE BLOOD COUNT 5.7 K/UL (4.8-10.8)
[2020-08-06] MEDS: Vancomycin 1 GM in NS 275 ML IVPB SCH ×2 (05:04→18:06)
[2020-08-06 05:18] LABS: ANION GAP 10 mmol/L (5-15); BLOOD UREA NITROGEN 7 mg/dL (7-18); CALCIUM 8.2 MG/DL (8.5-10.1); CARBON DIOXIDE 21 MMOL/L (21-32); CHLORIDE 111 MMOL/L (98-107); CREATININE 0.4 MG/DL (0.55-1.30); SODIUM 143 MMOL/L (136-145)
[2020-08-06 05:22] LABS: POTASSIUM 2.4 MMOL/L (3.5-5.1)
[2020-08-06] MEDS: Pantoprazole Inj IVP SCH (08:09)
[2020-08-06] MEDS: Heparin 5000 units/ml inj SUBQ SCH ×2 (08:10→21:00)
[2020-08-06] MEDS: D5NS 1,000 ML IV SCH ×2 (10:36→18:06)
[2020-08-06] MEDS: Insulin Reg 100 units Premix 100 ML IV SCH ×2 (12:59→14:35)
--- NOTE | 2020-08-06 14:37 | General Progress Note ---
Subjective Allergies: Coded Allergies: No Known Allergies (Unverified , 01/17/20) Subjective improved overall bicarb low Objective Last 24 Hour Vital Signs Date Time Temp Pulse Resp B/P (MAP) Pulse Ox O2 Delivery O2 Flow Rate FiO2 08/06/20 14:00 78 14 97/70 (79) 99 08/06/20 13:00 101/72 (82) 08/06/20 12:00 Room Air 08/06/20 12:00 99.3 82 16 109/81 (90) 100 08/06/20 11:52 80 08/06/20 11:00 81 15 102/70 (81) 100 08/06/20 10:00 72 12 100/75 (83) 100 08/06/20 09:00 69 15 104/77 (86) 100 08/06/20 08:00 Room Air 08/06/20 08:00 98.3 69 15 102/75 (84) 100 08/06/20 07:45 68 08/06/20 07:00 69 12 99/72 (81) 100 08/06/20 06:00 69 14 90/72 (78) 100 08/06/20 05:00 73 12 92/60 (71) 100 08/06/20 04:00 Room Air 08/06/20 04:00 99.0 75 11 86/57 (67) 100 08/06/20 04:00 75 08/06/20 03:00 75 15 98/52 (67) 98 08/06/20 02:00 71 14 101/73 (82) 99 08/06/20 01:00 76 15 100/68 (79) 99 08/06/20 00:00 98.8 86 17 98/63 (75) 100 08/06/20 00:00 Room Air 08/06/20 00:00 77 08/05/20 23:00 84 17 108/78 (88) 99 08/05/20 22:00 79 14 104/79 (87) 100 08/05/20 21:00 83 19 103/75 (84) 100 08/05/20 20:00 Room Air 08/05/20 20:00 83 08/05/20 20:00 98.8 81 14 105/81 (89) 100 08/05/20 19:00 81 13 100/67 (78) 100 08/05/20 18:00 88 12 100/71 (81) 99 08/05/20 17:00 86 15 97/72 (80) 100 08/05/20 16:00 89 14 99/68 (78) 100 08/05/20 16:00 83 08/05/20 16:00 Room Air 08/05/20 16:00 97.8 08/05/20 15:00 91 16 110/70 (83) 100 Intake and Output 08/05/20 08/06/20 19:00 07:00 Intake Total 710.75 ml 2569.208 ml Output Total 1700 ml Balance 710.75 ml 869.208 ml Intake Oral 240 ml IV Total 710.75 ml 2329.208 ml Output Urine Total 1700 ml # Voids 2 Laboratory Tests 08/05/20 14:58: Arterial Blood pH 7.379, Arterial Blood Partial Pressure CO2 27.5L, Arterial Blood Partial Pressure O2 96.6, Arterial Blood HCO3 15.9*L, Arterial Blood Oxygen Saturation 97.2, Arterial Blood Base Excess -7.7L, John Test Positive 08/05/20 15:04: POC Whole Blood Glucose 109H 08/05/20 15:15: Sodium Level 141, Potassium Level 2.4*L, Chloride Level 110H, Carbon Dioxide Level 17L, Blood Urea Nitrogen 11, Creatinine 0.6, Estimat Glomerular Filtration Rate > 60, Glucose Level 115#H, Hemoglobin A1c 11.2H, Calcium Level 8.3L, Magnesium Level 2.2 08/05/20 15:59: POC Whole Blood Glucose 127H 08/05/20 17:04: POC Whole Blood Glucose 126H 08/05/20 17:56: POC Whole Blood Glucose 121H 08/05/20 18:58: POC Whole Blood Glucose 133H 08/05/20 19:58: POC Whole Blood Glucose [Pending] 08/05/20 20:56: POC Whole Blood Glucose [Pending] 08/05/20 21:58: POC Whole Blood Glucose [Pending] 08/05/20 23:04: POC Whole Blood Glucose [Pending] 08/06/20 00:00: POC Whole Blood Glucose 268H 08/06/20 00:59: POC Whole Blood Glucose [Pending] 08/06/20 01:59: POC Whole Blood Glucose [Pending] 08/06/20 03:55: POC Whole Blood Glucose [Pending] 08/06/20 04:00: White Blood Count 5.7#, Red Blood Count 3.61L, Hemoglobin 12.2L, Hematocrit 34.1L, Mean Corpuscular Volume 94, Mean Corpuscular Hemoglobin 33.9H, Mean Corpuscular Hemoglobin Concent 35.9, Red Cell Distribution Width 12.7, Platelet Count 140L, Mean Platelet Volume 6.8, Neutrophils (%) (Auto) , Lymphocytes (%) (Auto) , Monocytes (%) (Auto) , Eosinophils (%) (Auto) , Basophils (%) (Auto) , Differential Total Cells Counted 100, Neutrophils % (Manual) 67, Lymphocytes % (Manual) 21, Monocytes % (Manual) 11H, Eosinophils % (Manual) 1, Basophils % (Manual) 0, Band Neutrophils 0, Platelet Estimate DecreasedL, Platelet Morphology Normal, Red Blood Cell Morphology Normal, Sodium Level 143, Potassium Level 2.4*L, Chloride Level 111H, Carbon Dioxide Level 21, Anion Gap 10, Blood Urea Nitrogen 7, Creatinine 0.4L, Estimat Glomerular Filtration Rate > 60, Glucose Level 111H, Calcium Level 8.2L 08/06/20 05:03: POC Whole Blood Glucose 115H 08/06/20 05:55: POC Whole Blood Glucose [Pending] 08/06/20 06:53: POC Whole Blood Glucose [Pending] 08/06/20 14:15: Sodium Level [Pending], Potassium Level [Pending], Chloride Level [Pending], Carbon Dioxide Level [Pending], Blood Urea Nitrogen [Pending], Creatinine [Pending], Estimat Glomerular Filtration Rate [Pending], Glucose Level [Pending], Calcium Level [Pending] Height (Feet): 5 Height (Inches): 2.00 Weight (Pounds): 150 Objective WDWN NAD clear breath sounds bilaterally without rhonchi or wheeze [id number] without MRG NABS nontender no HSM no CCE nonfocal Assessment/Plan Assessment/Plan: IMPRESSION: Diabetic ketoacidosis, profound acidemia, metabolic in nature, noncompliant, amphetamine user, leukocytosis of unclear etiology. PLAN add D5ns replace K insulin drip follow up for improvement in acidemia dc planning in am if stable resume home meds in am start diet and convert to PO antibiotics if able impression, plan, and exam edited and reviewed in detail care discussed with Eugenio Montez MD Aug 06, 2020 14:37
[2020-08-06 15:08] LABS: ANION GAP 9 mmol/L (5-15); BLOOD UREA NITROGEN 6 mg/dL (7-18); CALCIUM 7.8 MG/DL (8.5-10.1); CARBON DIOXIDE 19 MMOL/L (21-32); CHLORIDE 108 MMOL/L (98-107); CREATININE 0.7 MG/DL (0.55-1.30); POTASSIUM 2.9 MMOL/L (3.5-5.1); SODIUM 136 MMOL/L (136-145)
[2020-08-06] MEDS: cefTRIAXone 1 GM in NS 55 ML IVPB SCH (16:06)
[2020-08-07] VITALS (22 sets, daily range): BP systolic 82–110; BP diastolic 51–76
[2020-08-07] MEDS: Insulin Rate Change 1 Each MISC PRN ×6 (00:26→06:56)
[2020-08-07] MEDS: D5NS 1,000 ML IV SCH (01:22)
--- NOTE | 2020-08-07 09:03 | General Progress Note ---
Subjective Allergies: Coded Allergies: No Known Allergies (Unverified , 01/17/20) Subjective improved overall bicarb better Objective Last 24 Hour Vital Signs Date Time Temp Pulse Resp B/P (MAP) Pulse Ox O2 Delivery O2 Flow Rate FiO2 08/07/20 08:00 Room Air 08/07/20 08:00 64 15 91/69 (76) 99 08/07/20 08:00 69 08/07/20 07:00 58 15 83/64 (70) 99 08/07/20 06:00 62 18 99/60 (73) 99 08/07/20 05:00 62 13 90/60 (70) 99 08/07/20 04:00 64 08/07/20 04:00 98.4 66 15 82/58 (66) 99 08/07/20 04:00 Room Air 08/07/20 03:00 63 15 91/62 (72) 99 08/07/20 02:00 71 16 100/69 (79) 98 08/07/20 01:00 68 14 84/54 (64) 99 08/07/20 00:00 71 08/07/20 00:00 97.6 73 15 88/51 (63) 98 08/07/20 00:00 Room Air 08/06/20 23:00 74 17 83/53 (63) 98 08/06/20 22:00 74 16 97/69 (78) 98 08/06/20 21:00 79 17 98/72 (81) 99 08/06/20 20:00 Room Air 08/06/20 20:00 98.0 72 17 98/69 (79) 99 08/06/20 20:00 81 08/06/20 19:00 70 17 98/71 (80) 99 08/06/20 18:00 81 20 101/65 (77) 99 08/06/20 17:00 71 14 100/76 (84) 100 08/06/20 16:21 81 08/06/20 16:00 98.5 72 15 97/69 (78) 99 08/06/20 16:00 Room Air 08/06/20 15:00 76 15 96/69 (78) 99 08/06/20 14:00 78 14 97/70 (79) 99 08/06/20 13:00 101/72 (82) 11/25/20 12:00 Room Air 08/06/20 12:00 99.3 82 16 109/81 (90) 100 08/06/20 11:52 80 08/06/20 11:00 81 15 102/70 (81) 100 08/06/20 10:00 72 12 100/75 (83) 100 Intake and Output 08/06/20 08/07/20 19:00 07:00 Intake Total 2549.73 ml 1647.0 ml Output Total 2900 ml 1300 ml Balance -350.27 ml 347.0 ml Intake Oral 960 ml 210 ml IV Total 1589.73 ml 1437.0 ml Output Urine Total 2900 ml 1300 ml Laboratory Tests 08/06/20 14:15: Sodium Level 136, Potassium Level 2.9L, Chloride Level 108H, Carbon Dioxide Level 19L, Anion Gap 9, Blood Urea Nitrogen 6L, Creatinine 0.7#, Estimat Glomerular Filtration Rate > 60, Glucose Level 299#H, Calcium Level 7.8L 08/06/20 19:57: POC Whole Blood Glucose 128H 08/06/20 21:16: POC Whole Blood Glucose 196H 08/06/20 22:09: POC Whole Blood Glucose 263H 08/07/20 04:50: Vancomycin Level Trough 7.5 Height (Feet): 5 Height (Inches): 2.00 Weight (Pounds): 150 Objective WDWN NAD clear breath sounds bilaterally without rhonchi or wheeze [id number] without MRG NABS nontender no HSM no CCE nonfocal Assessment/Plan Assessment/Plan: IMPRESSION: Diabetic ketoacidosis, profound acidemia, metabolic in nature, noncompliant, amphetamine user, leukocytosis of unclear etiology. 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
[2020-08-07] MEDS: Pantoprazole Inj IVP SCH (09:13)
[2020-08-07] MEDS: Heparin 5000 units/ml inj SUBQ SCH ×2 (09:14→20:20)
[2020-08-07] MEDS: Vancomycin 1.25gm/250ml Premix IVPB SCH ×2 (09:16→16:58)
[2020-08-07] MEDS: NovoLOG Insulin Flexpen SUBQ SCH ×3 (13:34→20:20)
[2020-08-07] MEDS: cefTRIAXone 1 GM in NS 55 ML IVPB SCH (16:00)
[2020-08-07] MEDS: Levemir Flexpen SUBQ SCH (20:19)
[2020-08-08] VITALS: BP 103/68
[2020-08-08] MEDS: Vancomycin 1.25gm/250ml Premix IVPB SCH ×2 (00:37→10:12)
[2020-08-08 04:00] VITALS: BP 99/66
[2020-08-08] MEDS: NovoLOG Insulin Flexpen SUBQ SCH ×2 (05:43→11:20)
[2020-08-08 08:00] VITALS: BP 101/68
[2020-08-08] MEDS: Heparin 5000 units/ml inj SUBQ SCH (08:32)
[2020-08-08] MEDS: Pantoprazole Inj IVP SCH (08:37)
[2020-08-08] MEDS: Levemir Flexpen SUBQ SCH (08:42)
[2020-08-08 08:50] LABS: ANION GAP 6 mmol/L (5-15); BLOOD UREA NITROGEN 10 mg/dL (7-18); CALCIUM 7.8 MG/DL (8.5-10.1); CARBON DIOXIDE 30 MMOL/L (21-32); CHLORIDE 105 MMOL/L (98-107); CREATININE 0.7 MG/DL (0.55-1.30); SODIUM 141 MMOL/L (136-145)
--- NOTE | 2020-08-08 09:11 | General Progress Note ---
Subjective Allergies: Coded Allergies: No Known Allergies (Unverified , 01/17/20) Subjective improved overall on Levimir Objective Last 24 Hour Vital Signs Date Time Temp Pulse Resp B/P (MAP) Pulse Ox O2 Delivery O2 Flow Rate FiO2 08/08/20 04:00 98.0 59 16 99/66 (77) 99 08/08/20 00:00 98.3 66 17 103/68 (80) 98 08/07/20 20:46 98.4 71 16 108/69 (82) 98 08/07/20 20:00 Room Air 08/07/20 20:00 97.6 68 15 100/71 (81) 99 08/07/20 19:37 74 08/07/20 19:00 70 16 102/76 (85) 98 08/07/20 18:00 70 16 98/70 (79) 99 08/07/20 17:00 73 18 109/76 (87) 100 08/07/20 16:00 97.4 67 17 94/65 (75) 100 08/07/20 16:00 Room Air 08/07/20 15:28 67 08/07/20 15:00 70 14 101/74 (83) 99 08/07/20 14:00 72 18 96/69 (78) 99 08/07/20 13:00 76 17 102/74 (83) 99 08/07/20 12:00 97.7 83 19 110/72 (85) 100 08/07/20 12:00 Room Air 08/07/20 11:56 79 08/07/20 11:00 97.4 68 15 99/71 (80) 99 08/07/20 10:00 67 17 98/66 (77) 99 Intake and Output 08/07/20 08/08/20 19:00 07:00 Intake Total 1730.667 ml 1120.000 ml Output Total 1800 ml 1850 ml Balance -69.333 ml -730.000 ml Intake Oral 1250 ml 870 ml IV Total 480.667 ml 250.000 ml Output Urine Total 1800 ml 1850 ml Laboratory Tests 08/07/20 20:16: POC Whole Blood Glucose 257H 08/08/20 05:41: POC Whole Blood Glucose 150H 08/08/20 08:00: Sodium Level 141, Potassium Level 3.0L, Chloride Level 105, Carbon Dioxide Level 30, Anion Gap 6, Blood Urea Nitrogen 10, Creatinine 0.7, Estimat Glomerular Filtration Rate > 60, Glucose Level 203H, Calcium Level 7.8L, Vancomycin Level Trough 19.5H Height (Feet): 5 Height (Inches): 2.00 Weight (Pounds): 150 Objective WDWN NAD clear breath sounds bilaterally without rhonchi or wheeze [id number] without MRG NABS nontender no HSM no CCE nonfocal Assessment/Plan Assessment/Plan: IMPRESSION: Diabetic ketoacidosis, profound acidemia, metabolic in nature, noncompliant, amphetamine user, leukocytosis of unclear etiology. PLAN replace K Levimir RX given dc home PO antibiotics empiric follow up with PMD impression, plan, and exam edited and reviewed in detail care discussed with Eugenio Montez MD Aug 08, 2020 09:11
[2020-08-08] MEDS ORDERED: NS 275ml ONE (09:21)
[2020-08-08] MEDS ORDERED: Tubing IV Secondary IV ONE (09:21)
[2020-08-08 12:00] VITALS: BP 110/71
--- NOTE | 2020-08-10 09:28 | Discharge Summary ---
Discharge Summary Discharge Summary _ DATE OF ADMISSION: 08/04/2020 DATE OF DISCHARGE: 08/08/2020 DISCHARGED BY: Dr. Enio Appiah BRIEF HOSPITAL COURSE: Patient is a 45-year-old male who presented to ED due to generalized weakness, elevated blood sugar. Patient has not been taking his insulin. Is been using amphetamines. On arrival to ED, he was tachypneic and tachycardic. Blood work showed glucose elevated to 456. Anion gap high. Venous blood gas showed pH less than 7. Urine toxicology was positive for amphetamine. He was started on IV fluids as well as IV insulin drip. He was given IV potassium. He was then admitted to ICU for diabetic ketoacidosis. He was initially placed on n.p.o. with aggressive IV hydration and was continued on insulin drip. Blood glucose was closely monitored. There was improvement in acidemia. He was started on diet. Anion gap closed. Insulin drip was discontinued. He had leukocytosis of unclear etiology. He was started empirically on vancomycin. Blood glucose was stable. He was cleared for discharge home. He was sent home prescription for Levemir and empiric p.o. antibiotics. To follow-up with PMD. FINAL DIAGNOSES: Diabetic ketoacidosis, resolved Profound acidemia, metabolic in nature Amphetamine use or Noncompliance with medication Leukocytosis of unclear etiology DISPOSITION: DC home. DISCHARGE MEDICATIONS: Rx for Levemir and empiric p.o. antibiotic given DISCHARGE INSTRUCTIONS: Follow-up with PMD in a week. I have been assigned to complete a discharge summary on this account, I was not involved with the patient's management.--HENRY Shoemaker Jacqueline Robles NP Aug 10, 2020 09:27
== END 2020-08-08 15:30 | disposition home or self-care (01) | DRG 420 ==
LOC: EDBD 17:35 → EMR 17:45 → ICU 18:59 → EDBEDREQ 08-05 13:29 → SDU 08-05 14:07 → ICU 08-05 14:08 → 3E 08-07 20:35
DX: E11.10 Type 2 diabetes mellitus with ketoacidosis without coma (principal); Z91.14 Patient's other noncompliance with medication regimen; F15.10 Other stimulant abuse, uncomplicated; Z79.4 Long term (current) use of insulin
CPT/HCPCS: 36415; 71045; 80048; 80053; 80202; 80307; 81003; 82009; 82803; 82962; 83036; 83735; 84484; 85007; 85025; 87081; 93005; 96361; 96365; 96366; 96375; 99285; J1815; J2405; J7030; J8499; S5561